=== PATIENT | female | born 1975 | race Caucasian/White ===

== ENCOUNTER 2018-08-01 06:30 | Day surgery (SDC) | payer OTHER ==
[~2018-08-01] VITALS: Ht 160 cm; Wt 83.0 kg
[~2018-08-01 06:30] MED LIST: ELMIRON; MOME0.13 IH
[2018-08-01] MEDS ORDERED: CEFAZOLIN SOD 1 GM/ ISO 50 ML PREMIX IV ONE (07:30)
[2018-08-01] MEDS ORDERED: LR 1,000 ML IV SCH (09:50)
[2018-08-01] MEDS ORDERED: MORPHINE 4 MG/ML INJ. SYRINGE IVP PRN ×3 (10:00)
[2018-08-01] MEDS ORDERED: METOCLOPRAMIDE HCL 10 MG/2 ML VIAL IVP PRN (10:30)
[2018-08-01] MEDS ORDERED: ONDANSETRON HCL 4 MG/2 ML VIAL IVP PRN (10:30)
[2018-08-01] MEDS ORDERED: KETOROLAC TROMETHAMINE 30 MG VIAL ONE (10:45)
[2018-08-01] MEDS ORDERED: fentaNYL CITRATE 250 MCG/5 ML AMP ONE (10:45)
[2018-08-01] MEDS ORDERED: NS 1000 ML IV.SOLN IV ONE (10:45)
[2018-08-01] MEDS ORDERED: ROPIVACAINE 0.2% (NAROPIN) PF SOLUTION 100 ML BOTTLE ONE (10:45)
[2018-08-01] MEDS ORDERED: LR 1,000 ML IV.SOLN IV ONE (10:45)
[2018-08-01] MEDS ORDERED: ROCURONIUM BROMIDE 10 MG/ML (ZEMURON) ONE (10:45)
[2018-08-01] MEDS ORDERED: SEVOFLURANE 15 MIN GAS INH ONE (10:45)
[2018-08-01] MEDS ORDERED: PROPOFOL 200MG/ 20ML VIAL (DIPRIVAN) IV ONE (10:45)
[2018-08-01] MEDS ORDERED: BUPIVACAINE /EPINEPHRINE/PF 0.25% 30 ML VIAL INJ ONE (10:45)
[2018-08-01] MEDS ORDERED: ONDANSETRON HCL 4 MG/2 ML VIAL ONE (10:45)
[2018-08-01] MEDS ORDERED: MIDAZOLAM HCL 5 MG/ML VIAL (VERSED) IV ONE (10:45)
[2018-08-01] MEDS ORDERED: MORPHINE 4 MG/ML INJ. SYRINGE ONE (11:24)
[2018-08-01] MEDS ORDERED: OXYCODONE/ACETAMINOPHEN 5-325 TABLET PO PRN ×2 (12:00)
[2018-08-01] MEDS ORDERED: HYDROcodone/ACETAMIN 5-325 MG TAB (NORCO/ VICODIN) PO PRN (12:00)
[2018-08-01 12:11] VITALS: BP_SYST 127
[2018-08-01] MEDS ORDERED: CEFAZOLIN 1 GM IVPB PREMIX 50 ML IV ONE (13:00)
[2018-08-01] MEDS ORDERED: SIMETHICONE 80 MG TAB.CHEW PO SCH (13:00)
[2018-08-01] MEDS ORDERED: KETOROLAC TROMETHAMINE 30 MG VIAL IVP ONE (13:00)
== END 2018-08-01 15:30 | disposition home or self-care (01) ==
LOC: SDS 06:30 → SMU 06:30 → SDS 15:30
PROVIDERS: ATTEND Specialist
DX: C55 Malignant neoplasm of uterus, part unspecified (principal); R10.2 Pelvic and perineal pain; N80.0 Endometriosis of uterus; F41.9 Anxiety disorder, unspecified; Z68.33 Body mass index [BMI] 33.0-33.9, adult; Z79.01 Long term (current) use of anticoagulants; Z79.899 Other long term (current) drug therapy; Z98.890 Other specified postprocedural states; E66.9 Obesity, unspecified
CPT/HCPCS: 58542; 88309; C1727; J0690; J1885; J2250; J2270; J2405; J2704; J2795; J3010; J3490; J7030; J7120; 88307; E0190